=== PATIENT | male | born 1990 | race Caucasian/White ===

== ENCOUNTER 2016-10-11 18:51 | Emergency (ER) | payer OTHER ==
[~2016-10-11 18:51] MED LIST: PROVENTIL0.09 MG/A1 IH; ZIT250 PO
[2016-10-11 21:54] VITALS: BP 111/78
== END 2016-10-11 21:54 | disposition home or self-care (01) ==
LOC: ED 18:51
DX: S42.022A Displaced fracture of shaft of left clavicle, initial encounter for closed fracture (principal); V89.2XXA Person injured in unspecified motor-vehicle accident, traffic, initial encounter; Y93.89 Activity, other specified; Y92.89 Other specified places as the place of occurrence of the external cause; Y99.8 Other external cause status
CPT/HCPCS: Q0092